=== PATIENT | male | born 1985 | race Caucasian/White ===

== ENCOUNTER 2020-12-19 16:04 | Outpatient (REF) | payer BC, SELFPAY ==
--- NOTE | ~2020-12-19 | XR_ITS ---
EXAMINATION: XR KNEE, RIGHT CLINICAL INFORMATION: Right knee pain COMPARISON: None TECHNIQUE: Four views of the right knee. FINDINGS: Bones and soft tissues are normal. No fracture or joint effusion. Alignment is anatomic. Joint spaces are well maintained. A few small bony density seen in the region of the patella tendon adjacent to the tibial tuberosity without significant overlying soft tissue swelling. XR/XR knee RT 4V IMPRESSION: No significant bony abnormality of the right knee identified. No right knee effusion.
== END 2020-12-19 16:05 | disposition home or self-care (01) ==
LOC: HO.HMGCX 16:04
PROVIDERS: PCP Nurse Practitioner Family; Visit Provider Hospitalist
DX: M25.561 Pain in right knee (principal)
CPT/HCPCS: 73564

== ENCOUNTER 2022-03-10 06:01 | Outpatient (REF) | payer BC, SELFPAY ==
[2022-03-10 11:06] LABS: MANUAL DIFF FLAG NO
[2022-03-10 11:15] LABS: Appearance Urine Cloudy; Color Urine Yellow; Glucose Urine UA Negative (Negative); Leukocyte Esterase Urine Negative (Negative); Nitrite Urine Negative (Negative); Specific Gravity - Urine 1.025 (1.005-1.025); Urine Blood Negative (Negative); Urine Ketones Negative (Negative); Urine Protein Negative (Neg-Trace)
[2022-03-10 11:37] LABS: Basophils Percent Auto 0.6 % (0-2); Eosinophils Absolute Auto 0.2 X10*3/uL (0.0-0.4); Eosinophils Percent Auto 2.8 % (0-4); Hematocrit 45.5 % (42.0-52.0); Imm Gran Abs Auto 0.01 X10*3/uL (0.00-0.03); Imm Gran Pct Auto 0.2 % (0.0-0.4); Lymphocytes Absolute Auto 2.4 X10*3/uL (1.2-4.9); Lymphocytes Percent Auto 37.6 % (20-40); Mean Corpuscular Hemoglobin 28.4 pg (27.0-33.0); Mean Platelet Volume 10.2 fL (9.4-12.4); Monocytes Absolute Auto 0.6 X10*3/uL (0.1-1.2); Monocytes Percent Auto 9.6 % (2-11); Neutrophils Absolute Auto 3.2 x10*3/uL (2.0-8.3); Neutrophils Percent Auto 49.2 % (45-73); Platelet Count 188 X10*3/uL (160-400); Red Blood Count 5.29 X10*6/uL (4.60-5.80); Red Cell Distribution Width 12.5 % (11.0-16.0); White Blood Count 6.4 X10*3/uL (4.8-10.8)
[2022-03-10 11:57] LABS: Alanine Aminotransferase 49 U/L (0-40); Albumin Level 4.3 g/dL (3.5-5.0); Alkaline Phosphatase 60 U/L (39-117); Anion Gap 14 (12-20); Aspartate Amino Transferase 27 U/L (5-37); Bilirubin Total 0.6 mg/dL (0.0-1.0); Blood Urea Nitrogen 18 mg/dL (9-16); Calcium 9.1 mg/dL (8.4-10.2); Carbon Dioxide 24 mmol/L (22-29); Chloride 105 mmol/L (96-108); Cholesterol 200 mg/dL; Estimated Glomerular Filt Rate > 60; Glucose Fasting 87 mg/dL (60-99); HDL Cholesterol 33 mg/dL; LDL Cholesterol Calculated 139 mg/dl; Potassium 4.2 mmol/L (3.3-5.1); Sodium 139 mmol/L (135-145); Triglycerides 141 mg/dL
[2022-03-10 12:01] LABS: TSH reflex Free T4 2.74 uIU/mL (0.32-4.0)
[2022-03-14 15:56] LABS: Testosterone, Total 363 ng/dL (250-1100)
== END 2022-03-10 06:02 | disposition home or self-care (01) ==
LOC: HO.HMGCLDS 06:01
PROVIDERS: PCP Nurse Practitioner Family; Visit Provider Nurse Practitioner Family
DX: Z00.00 Encounter for general adult medical examination without abnormal findings (principal); N52.9 Male erectile dysfunction, unspecified
CPT/HCPCS: 36415; 80053; 80061; 81003; 84402; 84403; 84443; 85025

== ENCOUNTER 2024-11-30 13:36 | Outpatient (AMB) | payer BC, SELFPAY ==
--- NOTE | 2024-11-30 13:40 | MHC.PC.OV ---
Vital Signs 11/30/24 13:41 Height 6 ft 1 in Weight 251 lb BMI 33.1 BP 130/90 H Position Sitting Pulse 86 Pulse Source Pulse Oximeter Pulse Oximetry (%) 95 Oxygen Delivery Method Room Air Intake Visit Reasons: discharge/concussion Apprentice Architect Required: No Accompanied by: Self / Same As Patient Allergies No Known Allergies Allergy (Verified 11/30/24 13:42) Medication List - Last Reconciled 11/30/24 by María Daniel PA-C No Known Home Meds Tobacco use date assessed: 11/30/24 Dental Screening Dental Screen Date: 11/30/24 Did you have a dental visit in the last 12 months?: Yes Did you have a dental problem in the last 6 months where you did not have access to dental care?: No Was dental information given to patient?: Patient has dentist HPI TCM TCM Information Date of Discharge 11/17/24 HPI Comments History of Present Illness Details Patient is a 39-year-old male with no significant past medical history here for a emergency room follow-up from an emergency room visit on November 17 at [facility]. Patient was brought by EMS to the [facility] Emergency Department as a category 2 trauma status post falling off of a horse. After he fell off the horse he was found unresponsive by a bystander and was thought to have had agonal respirations. When EMS arrived he was alert and oriented complaining of neck pain, dizziness and blurry vision. He was collared by EMS. EMS staff reports that he was forgetful and route but he remembered the horse bucking and falling to the ground. Upon arrival to the emergency department, primary survey was done and he was found to have a GCS of 15 his vital signs were stable, his physical exam was relatively unremarkable. He had the following workup; his labs were found to be normal, he had a CTA of the head, neck, chest abdomen and pelvis, a chest x-ray all of which were negative for any acute issues. He remained clinically stable while in the emergency department was answering questions appropriately although he did continue to repeat questions every few minutes. The trauma doctors and emergency department staff felt he was appropriate to be discharged home if he had family that could observe him, which he said he did so he was discharged later on the 17 of November. He was discharged with a diagnosis of a concussion due to the headache and memory issues he was having. He was told to take Tylenol for pain and have an adult observe him for the next few days. 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 He was also told to not work until cleared by his PCP or the concussion clinic and was told to follow up with the Trauma Clinic for a concussion appointment. Since being discharged he denies any vomiting, loss of consciousness, on usual sleepiness, weakness, decreased ability to walk or move any part of his body. He went back to work on 11/27/24, he says busy days make him head feel overwhelmed , today has been good and not as overwhelming as it has not been as stressful of a day. He is still having some having some word finding difficulties, headaches, he states his neck hurts a little still but overall, improving each week. He has some nausea without vomiting, some dizziness with change of position. Has been taking Tylneol but states it doesn't work as well. He has not been resting his brain specifically. He has an appointment at the trauma clinic on 12/08 for a concussion follow up. [facility] Social History Housing: House Patient Tobacco Use Status: Current everyday Tobacco user Tobacco use type: Smokeless Tobacco e-Cigarette/Vaping Use: Never Used Second Hand Smoke Exposure: No service: No Current occupational status: employed Current occupation: [employer] Current occupational exposures/hazards: Yes Cognitive needs: No Hearing needs: No Vision needs: No Questionnaire PHQ-9 Over the last 2 weeks, how often have you been bothered by any of the following problems? 1. Little interest or pleasure in doing things: not at all 2. Feeling down, depressed, or hopeless: not at all 3. Trouble falling or staying asleep, or sleeping too much: not at all 4. Feeling tired or having little energy: not at all 5. Poor appetite or overeating: not at all 6. Feeling bad about yourself - or that you are a failure or have let yourself or your family down: not at all 7. Trouble concentrating on things, such as reading the newspaper or watching television: not at all 8. Moving or speaking so slowly that other people could have noticed. Or the opposite - being so fidgety or restless that you have been moving around a lot more than usual: not at all 9. Thoughts that you would be better off or of hurting yourself in some way: not at all Total score: 0 Depression Screening Interpretation: Negative Depression Screening Done: Yes 70655 - PHQ-9 Billing: Yes Source: Developed by Drs. Vic Puente, Breana Rendon, Zander Harris and colleagues, with an educational mariam from [employer] Thrive Questionnaire Date Thrive assessed: 11/30/24 I am a: Patient What is your living situation today?: I have a steady place to live Within the past 12 months, did the food you bought not last and you didn't have the money to get more?: Never true Within the past 12 months, did you worry whether your food would run out before you got money to buy more?: Never true Do you have trouble paying for medicines?: Yes Do you have trouble getting transportation to medical appointments?: No Do you have trouble paying your heating and electricity bill?: No Do you have trouble taking care of your child, family member or friend?: No Do you have trouble with day-to-day activities such as bathing, preparing meals, shopping, managing finances, etc.?: No Are you currently unemployed and looking for a job?: No Are you interested in more education?: No Please select the resources that you would like help with: None Currently or been in a relationship where the following occur: No concerns reported THRIVE Score: 0 AUDIT C Alcohol Use Questionnaire (AUDIT-C) 1. How often do you have a drink containing alcohol?: Never 3. How often do you have six or more drinks on one occasion?: Never Total Score: 0 Score Reviewed/Action Taken: No LUANNE-7 AMB Questionnaire LUANNE-7 Date LUANNE - 7 assessed: 11/30/24 Feeling nervous, anxious, or on edge: 0 = Not at all Not being able to stop or control worryin = Not at all Worrying too much about different things: 0 = Not at all Trouble relaxin = Not at all Being so restless that it is hard to sit still: 0 = Not at all Becoming easily annoyed or irritable: 0 = Not at all Feeling afraid as if something awful might happen: 0 = Not at all Total LUANNE-7 score (0-4 normal; 5-9 mild; 10-14 moderate; 15-21 severe): 0 Source: Developed by Drs. Vic Puente, Breana Rendon, Zander Harris and colleagues, with an educational mariam from [employer] LUANNE-7 Assessment Billing LUANNE-7 Assessment Tool: LUANNE-7 Assessment 14048 Review of Systems Const All systems reviewed & are unremarkable except as noted in HPI and below Physical exam (Primary Care) Vital Signs: Last Vital Signs Pulse 86 11/30/24 13:41 BP 130/90 H 11/30/24 13:41 Pulse Ox 95 11/30/24 13:41 Oxygen Delivery Method Room Air 11/30/24 13:41 BMI result Body Mass Index 33.1 Tobacco/Smoking Status: Tobacco use Status Tobacco use date assessed 11/30/24 11/30/24 13:45 Patient Tobacco Use Status Current everyday Tobacco 11/30/24 13:45 Tobacco use type Smokeless Tobacco 11/30/24 13:45 e-Cigarette/Vaping Use Never Used 11/30/24 13:45 PHQ-9: PHQ-9 Score PHQ-9: Total score 0 11/30/24 14:09 Depression Screening Interpretation: Negative Thrive Assessment: Date of Thrive Assessment Date Thrive assessed 11/30/24 11/30/24 13:45 Currently or been in a relationship where the following occur: No concerns reported Const General: cooperative, healthy appearing, comfortable, no acute distress and well developed Orientation/consciousness: patient oriented x3 Limitations: no limitations HENMT Head: Yes normal to inspection Ears: hearing grossly normal bilaterally General nose exam: Normal external nose present Face and sinus: Yes normal facial exam Eyes General: appearance normal, both eyes and all related structures Neck Neck: Yes normal visual inspection and Yes full ROM Resp Effort & Inspection: normal respiratory effort and able to speak in complete sentences Skin General skin exam: no rashes or lesions noted Neuro General: patient oriented x3 Extrem General: Yes normal to inspection Coding Level of Care Code Est Pt Level 4 (57276) Diagnoses Hospital discharge follow-up Z09 Concussion with loss of consciousness of 30 minutes or less, initial encounter S06.0X1A Encounter type: initial encounter Loss of consciousness presence/duration: with LOC of 30 min or less Additional Codes LUANNE-7 Assessment Billing - LUANNE-7 Assessment Tool: LUANNE-7 Assessment 27471 ([id number]) PHQ-9 - 75369 - PHQ-9 Billing: Yes ([id number]) Assessment & Plan Assessment & Plan (1) Hospital discharge follow-up: Code(s): Z09 - Encounter for follow-up examination after completed treatment for conditions other than malignant neoplasm Category: Medical Plan: As patient is still symptomatic, I did recommend he stay out of work to allow his brain to heal so I wrote him a note to excuse him until he is cleared by the Concussion Clinic to return to work. He will be dropping off [facility] paperwork for me to fill out. We also had a long discussion about brain rest and allowing his brain to heal. Reduced stimulation with no music, no screen time, in the dark as much as he possibly can we will help him recover from his concussion faster. Encouraged him to go to the concussion appointment on December 08 at the trauma clinic. (2) Concussion: Code(s): S06.0XAA - Concussion with loss of consciousness status unknown, initial encounter Category: Medical Qualifiers: Encounter type: initial encounter Loss of consciousness presence/duration: with LOC of 30 min or less Qualified Code(s): S06.0X1A - Concussion with loss of consciousness of 30 minutes or less, initial encounter Plan: as above
[2024-11-30 13:41] VITALS: BP 130/90; PULSE 86; O2SAT 95; BMI 33.1
--- OUTSIDE RECORDS SUMMARY | 2024-11-30 14:14 | XMS_ITS | Continuity of Care Document ---
Author Organization [facility] Address [address] [place] [address] Care Team Providers Care Highballer Name Role Phone Cameron Warner NP Primary Care Provider Encounters Date Type Department Care Team Description 09/16/2020 3:30 PM EDT Office Visit [address] [phone] Lisandro Cartagena PA Screen for STD (sexually transmitted disease) (Primary Dx); Difficult or painful urination 09/16/2020 Travel 07/21/2019 Office Visit [facility] [address] [place] [phone] Landen Aguirre PA 07/21/2019 2:15 PM EST Office Visit [facility] [address] [place] [phone] Landen Aguirre PA Pre-employment health screening examination (Primary Dx) Allergies No known active allergies Medications No known medications Immunizations Immunization Administration Dates Next Due Influenza,injectable,quad,Prsrv Fr 03/29/2018 Social History Smoking Status as of 11/30/2024 Tobacco Use Types Packs/Day Years Used Date Smoking Tobacco: Never Assessed Sex and Gender Information Value Date Recorded Sex Assigned at Not on file Legal Sex Male 1:14 PM EST Gender Identity Not on file Sexual Orientation Not on file Last Filed Vital Signs Vital Sign Reading Time Taken Comments Blood Pressure 118/77 09/16/2020 3:26 PM EDT Pulse 98 09/16/2020 3:26 PM EDT Temperature 36 C (96.8 F) 09/16/2020 3:26 PM EDT Respiratory Rate - - Oxygen Saturation 97% 09/16/2020 3:26 PM EDT Inhaled Oxygen Concentration - - Weight - - Height - - Body Mass Index - - Plan of Treatment Not on file Procedures * Due to [place] Visual [employer] law, this organization might not be sharing negative HIV tests. Procedure Name Priority Date/Time Associated Diagnosis Comments CHLAMYDIA TRACHOMATIS/N. GONORRHOEAE (GC) RNA, TMA (URINE) Routine 09/16/2020 3:45 PM EDT Screen for STD (sexually transmitted disease) SYPHILIS (FTA) ANTIBODY CASCADING REFLEX TO RPR/TITER (*PREFERRED SCREEN*) Routine 09/16/2020 3:45 PM EDT Screen for STD (sexually transmitted disease) URINE DIPSTICK - STATION Routine 09/16/2020 3:36 PM EDT Difficult or painful urination Results * Due to [place] Visual [employer] law, this organization might not be sharing negative HIV tests. * SYPHILIS (FTA) ANTIBODY CASCADING REFLEX TO RPR/TITER (*PREFERRED SCREEN*) (09/16/2020 3:45 PM EDT) Treponema pallidum Ab NEGATIVE NEGATIVE [facility] Comment: No antibodies to T. pallidum (the agent causing syphilis) were detected in the specimen. This result, however, does not exclude very recent T. pallidum infection; testing of a second specimen, collected 2-4 weeks after this specimen, is recommended if the index of suspicion for recent infection is high. 09/16/2020 3:45 PM EDT 09/17/2020 1:49 AM EDT Narrative Resulting Agency Comment [id number] [facility] Final Result [facility] [address] [place] [address] * CHLAMYDIA TRACHOMATIS/N. GONORRHOEAE (GC) RNA, TMA (URINE) (09/16/2020 3:45 PM EDT) Chlamydia trachomatis rRNA NOT DETECTED NOT DETECTED [facility] Neisseria Gonorrhoeae rRNA NOT DETECTED NOT DETECTED [facility] COMMENT SEE NOTE [facility] Comment: The analytical performance characteristics of this assay, when used to test SurePath(TM) specimens have been determined by [employer]. The modifications have not been cleared or approved by the FDA. This assay has been validated pursuant to the CLIA regulations and is used for clinical purposes. For additional information, please refer to https://education.InStaff/faq/RWY348 (This link is being provided for information/ educational purposes only.) 09/16/2020 3:45 PM EDT 09/17/2020 1:49 AM EDT Narrative Resulting Agency Comment [id number] Lis[facility] Final Result [facility] [address] [place] [address] * (ABNORMAL) URINE DIPSTICK - STATION (09/16/2020 3:36 PM EDT) COLOR (URINE) yellow APPEARANCE (URINE) clear Clear Leukocyte esterase (Urine) neg Neg NITRITE (URINE) neg Neg UROBILINOGEN, URINE 0.2 Neg PROTEIN (URINE) trace Neg PH (URINE) 5.0 5.0 - 8.0 BLOOD (URINE) neg Neg SPECIFIC GRAVITY 1.025 1.001 - 1.035 UR KETONES 5 trace Neg BILIRUBIN (URINE) small Neg GLUCOSE (URINE) neg Neg Urine clean catch 09/16/2020 3:36 PM EDT [facility] Final Result Visit Diagnoses Diagnosis Start Date Pre-employment health screening examination Health examination of defined subpopulation 07/21/2019 Screen for STD (sexually transmitted disease) Screening examination for venereal disease 09/16/2020 Difficult or painful urination Dysuria 09/16/2020 Care Teams Highballer Relationship Specialty Start Date End Date Cameron Warner NP [address] [id number] PCP - General Nurse Practitioner 09/16/20
--- OUTSIDE RECORDS SUMMARY | 2024-11-30 14:14 | XMS_ITS | Referral Summary ---
Author Organization [facility] Address [address] [place] [address] Care Team Providers Care Automotive Heavy Mechanic Name Role Phone Cameron Warner Primary Care Provider [phone] Allergies No known active allergies Medications cyclobenzaprine (FLEXERIL) 10 mg tablet Take 1 tablet (10 mg total) by mouth 2 times a day as needed for muscle spasms. 20 tablet 12/13/2021 Active Social History Tobacco Use Types Packs/Day Years Used Date Smoking Tobacco: Never Assessed Sex and Gender Information Value Date Recorded Sex Assigned at Male 06/07/2022 10:18 AM EST Legal Sex Male 3:02 PM EDT Gender Identity Male 06/07/2022 10:18 AM EST Sexual Orientation Straight 06/07/2022 10 :18 AM EST Last Filed Vital Signs Vital Sign Reading Time Taken Comments Blood Pressure 129/102 06/03/2022 10:24 AM EST Pulse 104 06/03/2022 10:24 AM EST Temperature 36.4 C (97.5 F) 06/03/2022 10:24 AM EST Respiratory Rate 18 06/03/2022 10:24 AM EST Oxygen Saturation 98% 06/03/2022 10:24 AM EST Inhaled Oxygen Concentration - - Weight 106.6 kg (235 lb) 12/13/2021 3:10 PM EDT Height - - Body Mass Index - - Plan of Treatment Not on file Insurance BCBS OUT OF STATE PPO WORKERS COMPENSATION [facility] Care Teams Automotive Heavy Mechanic Relationship Specialty Start Date End Date Cameron Warner [address] [place] [address] PCP - General 12/13/21
--- OUTSIDE RECORDS SUMMARY | 2024-11-30 14:14 | XMS_ITS | Clinical Summary ---
Author Organization [facility] Address [address] [place] [address] Care Team Providers Care Parcel Carrier Name Role Phone Pcp, No Primary Care Provider Unavailabl e Social History Tobacco Use Types Packs/Day Years Used Date Smoking Tobacco: Never Assessed Sex and Gender Information Value Date Recorded Sex Assigned at Not on file Legal Sex Male 11:12 AM EST Gender Identity Not on file Sexual Orientation Not on file Plan of Treatment Health Maintenance Due Date Last Done Comments Hepatitis C Virus Screening 1984 HIV Screening 1997 DTaP/Tdap/Td Vaccines (1 - Tdap) 2003 Hepatitis B Vaccines (1 of 3 - 19+ 3-dose series) 2003 COVID-19 Vaccine (2023-2 5 season) 2024 Influenza Vaccine 12/15/2024 03/29/2018 HPV Vaccines Aged Out No longer eligi ble based on patient's age to complete this topic Pneumococcal Vaccine: Pediat gaurav (0-5 Years) and At-Risk Patients (6 to 49 Years) Aged Out No longer eligible b ased on patient's age to complete this topic Insurance [employer] OUT OF STATE - PPO Care Teams Parcel Carrier Relationship Specialty Start Date End Date Pcp, No PCP - General General Medicine 04/12/21
== END 2024-11-30 14:36 | disposition home or self-care (01) ==
PROVIDERS: PCP Nurse Practitioner Family; Visit Provider Physician Assistant
DX: Z09 Encounter for follow-up examination after completed treatment for conditions other than malignant neoplasm (principal); S06.0X1A Concussion with loss of consciousness of 30 minutes or less, initial encounter

== ENCOUNTER → 2024-11-30 13:36 | Outpatient (BNVA) | payer OTHER, BC, SELFPAY | PROVIDERS: PCP Nurse Practitioner Family; Visit Provider Physician Assistant | DX: S06.0X1D Concussion with loss of consciousness of 30 minutes or less, subsequent encounter (principal); V80.010D Animal-rider injured by fall from or being thrown from horse in noncollision accident, subsequent encounter; Z09 Encounter for follow-up examination after completed treatment for conditions other than malignant neoplasm | CPT/HCPCS: 96127 ==

== ENCOUNTER 2025-03-19 09:01 | Outpatient (AMB) | payer BC, SELFPAY ==
[2025-03-19 09:11] VITALS: BP 126/76; PULSE 73; RESP 16; TEMP 37.1; O2SAT 96; BMI 31.9
--- NOTE | 2025-03-19 09:11 | MHC.PC.OV ---
Vital Signs 03/19/25 09:11 Height 6 ft 1 in Weight 242 lb BMI 31.9 BP 126/76 Blood Pressure Location Lt brachial Position Sitting Respiration 16 Pulse 73 Pulse Source Pulse Oximeter Temp 98.8 F Temp Source Oral Pulse Oximetry (%) 96 Oxygen Delivery Method Room Air Intake Visit Reasons: PE Printer Assistant Required: No Accompanied by: Self / Same As Patient Allergies No Known Allergies Allergy (Verified 03/19/25 10:06) Medication List - Last Reconciled 03/19/25 by DONNA Emerson No Known Home Meds Tobacco use date assessed: 03/19/25 Dental Screening Dental Screen Date: 03/19/25 Did you have a dental visit in the last 12 months?: Yes Did you have a dental problem in the last 6 months where you did not have access to dental care?: No Was dental information given to patient?: Patient has [facility] Social History Housing: House Patient Tobacco Use Status: Former Tobacco user Tobacco use type: Smokeless Tobacco e-Cigarette/Vaping Use: Never Used Second Hand Smoke Exposure: No service: No Current occupational status: employed Current occupation: [place] Current occupational exposures/hazards: Yes Cognitive needs: No Hearing needs: No Vision needs: No Questionnaire PHQ-9 Over the last 2 weeks, how often have you been bothered by any of the following problems? 1. Little interest or pleasure in doing things: not at all 2. Feeling down, depressed, or hopeless: not at all 3. Trouble falling or staying asleep, or sleeping too much: not at all 4. Feeling tired or having little energy: not at all 5. Poor appetite or overeating: not at all 6. Feeling bad about yourself - or that you are a failure or have let yourself or your family down: not at all 7. Trouble concentrating on things, such as reading the newspaper or watching television: not at all 8. Moving or speaking so slowly that other people could have noticed. Or the opposite - being so fidgety or restless that you have been moving around a lot more than usual: not at all 9. Thoughts that you would be better off or of hurting yourself in some way: not at all Total score: 0 Depression Screening Interpretation: Negative Depression Screening Done: Yes 01446 - PHQ-9 Billing: Yes Source: Developed by Drs. Vic Puente, Breana Rendon, Zander Harris and colleagues, with an educational mariam from [employer]. Thrive Questionnaire Date Thrive assessed: 11/30/24 I am a: Patient What is your living situation today?: I have a steady place to live Within the past 12 months, did the food you bought not last and you didn't have the money to get more?: Never true Within the past 12 months, did you worry whether your food would run out before you got money to buy more?: Never true Do you have trouble paying for medicines?: Yes Do you have trouble getting transportation to medical appointments?: No Do you have trouble paying your heating and electricity bill?: No Do you have trouble taking care of your child, family member or friend?: No Do you have trouble with day-to-day activities such as bathing, preparing meals, shopping, managing finances, etc.?: No Are you currently unemployed and looking for a job?: No Are you interested in more education?: No Please select the resources that you would like help with: None Currently or been in a relationship where the following occur: No concerns reported THRIVE Score: 0 AUDIT C Alcohol Use Questionnaire (AUDIT-C) 2. How many drinks containing alcohol do you have on a typical day when you are drinking?: 1 or 2 3. How often do you have six or more drinks on one occasion?: Never Total Score: 0 LUANNE-7 AMB Questionnaire LUANNE-7 Date LUANNE - 7 assessed: 03/19/25 Feeling nervous, anxious, or on edge: 0 = Not at all Not being able to stop or control worryin = Not at all Worrying too much about different things: 0 = Not at all Trouble relaxin = Not at all Being so restless that it is hard to sit still: 0 = Not at all Becoming easily annoyed or irritable: 0 = Not at all Feeling afraid as if something awful might happen: 0 = Not at all Total LUANNE-7 score (0-4 normal; 5-9 mild; 10-14 moderate; 15-21 severe): 0 Source: Developed by Breana Mccord B.W. Justice, Zander Harris and colleagues, with an educational mariam from [employer]. LUANNE-7 Assessment Billing LUANNE-7 Assessment Tool: LUANNE-7 Assessment 52532 Physical exam (Primary Care) Vital Signs: Last Vital Signs Temp 98.8 F 03/19/25 09:11 Pulse 73 03/19/25 09:11 Resp 16 03/19/25 09:11 BP 126/76 03/19/25 09:11 Pulse Ox 96 03/19/25 09:11 Oxygen Delivery Method Room Air 03/19/25 09:11 BMI result Body Mass Index 31.9 Tobacco/Smoking Status: Tobacco use Status Tobacco use date assessed 03/19/25 03/19/25 09:16 Patient Tobacco Use Status Former Tobacco user 03/19/25 09:16 Tobacco use type Smokeless Tobacco 03/19/25 09:16 e-Cigarette/Vaping Use Never Used 03/19/25 09:16 PHQ-9: PHQ-9 Score PHQ-9: Total score 0 03/19/25 09:16 Depression Screening Interpretation: Negative Thrive Assessment: Date of Thrive Assessment Date Thrive assessed 11/30/24 03/19/25 09:16 Currently or been in a relationship where the following occur: No concerns reported Coding Level of Care Code Est Pt Prev Care 40-64y(88039) Diagnoses Physical exam Z00.00 Skin lesions L98.9 Left testicular pain N50.812 Screening for prostate cancer Z12.5 Additional Codes LUANNE-7 Assessment Billing - LUANNE-7 Assessment Tool: LUANNE-7 Assessment 28646 ([id number]) PHQ-9 - 57323 - PHQ-9 Billing: Yes ([id number]) Assessment & Plan Assessment & Plan (1) Physical exam: Code(s): Z00.00 - Encounter for general adult medical examination without abnormal findings Category: Medical (2) Skin lesions: Code(s): L98.9 - Disorder of the skin and subcutaneous tissue, unspecified Category: Medical (3) Left testicular pain: Code(s): N50.812 - Left testicular pain Category: Medical (4) Screening for prostate cancer: Code(s): Z12.5 - Encounter for screening for malignant neoplasm of prostate Category: Medical Plan . Orders: Orders Comprehensive [place]. Panel Fast Today Z00.00 - Encounter for general adult medical examination without abnormal findings TSH reflex Free T4 Today Z00.00 - Encounter for general adult medical examination without abnormal findings US scrotum Today N50.812 - Left testicular pain Complete Blood Count Auto Diff Today Z00.00 - Encounter for general adult medical examination without abnormal findings UA CC w/rflx Micro + Cult Today Z00.00 - Encounter for general adult medical examination without abnormal findings Lipid Panel Today Z00.00 - Encounter for general adult medical examination without abnormal findings Prostate Specific Antigen Scr Today Z12.5 - Encounter for screening for malignant neoplasm of prostate Referrals Dermatology Referral L98.9 - Disorder of the skin and subcutaneous tissue, unspecified
--- OUTSIDE RECORDS SUMMARY | 2025-03-19 09:51 | XMS_ITS | Continuity of Care Document ---
Author Organization [facility] Address [address] [place] [address] Care Team Providers Care Metalworker Name Role Phone Cameron Warner NP Primary Care Provider Encounters Date Type Department Care Team Description 09/16/2020 3:30 PM EDT Office Visit [address] [phone] Lisandro Cartagena PA Screen for STD (sexually transmitted disease) (Primary Dx); Difficult or painful urination 09/16/2020 Travel 07/21/2019 Office Visit [facility] [address] [place] [phone] Landen Aguirre PA 07/21/2019 2:15 PM EST Office Visit [facility] [address] [place] [phone] Landen Aguirre PA Pre-employment health screening examination (Primary Dx) Allergies No known active allergies Medications No known medications Immunizations Immunization Administration Dates Next Due Influenza,injectable,quad,Prsrv Fr 03/29/2018 Social History Smoking Status as of 03/19/2025 Tobacco Use Types Packs/Day Years Used Date [...] Not on file Procedures * Due to [place] SocialMedia[employer] law, this organization might not be sharing [...] or painful urination Results * Due to [place] SocialMedia[place] law, this organization might not be sharing [...] 1:49 AM EDT Narrative Resulting Agency Comment [id number] [facility] Final Result [facility] [address] [place] [address] * CHLAMYDIA TRACHOMATIS/N. GONORRHOEAE (GC) RNA, TMA (URINE) (09/16/2020 3:45 PM EDT) Chlamydia trachomatis rRNA NOT DETECTED NOT DETECTED [facility] Neisseria Gonorrhoeae rRNA NOT DETECTED NOT DETECTED [facility] COMMENT SEE NOTE [facility] Comment: The analytical performance characteristics of this assay, when used to test SurePath(TM) specimens have been determined by [facility]. The modifications have not been cleared or approved by the FDA. This assay has been validated pursuant to the CLIA regulations and is used for clinical purposes. For additional information, please refer to https://education.[employer]/faq/NHB486 (This link is being provided for information/ educational purposes only.) 09/16/2020 3:45 PM EDT 09/17/2020 1:49 AM EDT Narrative Resulting Agency Comment [id number] [facility] Final Result [facility] [address] [place] [address] * (ABNORMAL) URINE DIPSTICK - STATION (09/16/2020 [...] or painful urination Dysuria 09/16/2020 Care Teams Metalworker Relationship Specialty Start Date End Date Cameron Warner NP [address] [address] PCP - General Nurse Practitioner 09/16/20
--- OUTSIDE RECORDS SUMMARY | 2025-03-19 09:51 | XMS_ITS | Clinical Summary ---
Author Organization [facility] Address [address] [place] [address] Care Team Providers Care Sludge Filtration Attendant Name Role Phone Cameron Warner Primary Care Provider Allergies No known active allergies Medications cyclobenzaprine [...] Mass Index - - Plan of Treatment Health Maintenance Due Date Last Done Comments HIV Screening 1984 Varicella Vaccines (1 of 2 - 13+ 2-dose series) 1997 Hepatitis B Vaccines (1 of 3 - 19+ 3-dose series) 2003 DTaP,Tdap,and Td Vaccines (2 - Td or Tdap) 11/18/2021 11/19/2011 Alcohol/Substance Use Screening 05/17/2024 COVID-19 Vaccine (1 - 2024-2 6 season) 2025 Influenza Vaccine (#1) 2025 03/29/2018 RSV Vaccine (60+ years old a nd patients) (1 - 1-dose 75+ series) 2059 Pneumococcal Vaccine: Pediat gaurav (0-5 Years) and At-Risk Patients (6-50 Years) Aged Out No longer eligible b ased on patient's age to complete this topic Insurance BCBS OUT OF STATE PPO WORKERS COMPENSATION ESTELA DOCKERY Care Teams Sludge Filtration Attendant Relationship Specialty Start Date End Date Cameron Warner [address] [place] [address] PCP - General 12/13/21
--- OUTSIDE RECORDS SUMMARY | 2025-03-19 09:51 | XMS_ITS ---
Author Name [facility] Organization Unknown Encounters Encounter Type Encounter Reason Primary Diagnosis Location Date Ambulatory Contact with and (suspected) exposure to covid-19 [facility] 04/12/2021 Care Team Organization Name Specialty Phone Email Start Date End Da te [facility] PCP,No Primary Care 04/12/2021 01/03/2024 [facility] NO PCP Primary Care 04/12/2021 04/12/2021
--- OUTSIDE RECORDS SUMMARY | 2025-03-19 09:51 | XMS_ITS | Encounter Summary ---
Author Organization [facility] Address [address] [place] [phone] Phone Care Team Providers Care C++ Professor Name Role Phone Baljeet Solares DO Primary Care Provider [phone] Pcp, Unknown Primary Care Provider Cameron Hernandez NP Primary Care Provider + Encounter Details Date Type Department Care Team (Late st Contact Info) Description 07/30/2017 Ancillary Orders [facility] [address] [place] [address] [phone] Lisa Gill PA-C [address] [place] [address] [facility] 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 Not on file Not o n file documented as of this encounter Plan of Treatment Not on file documented as of this encounter Visit Diagnoses Not on filedocumented in this encounter Care Teams C++ Professor Relationship Specialty Start Date End Date Baljeet Solares DO [address] [facility] [place] [address] [email or web address] PCP - General Family Medicine 04/01/17 11/02/21 Pcp, Unknown PCP - General 11/03/21 10/03/23 Cameron Warner NP [facility] [place] [address] PCP - General Nurse Practitioner 10/04/23 documented as of this encounter Additional Source Comments The information contained in this document represents components of the legal health record. It is not the complete legal health record.[facility]
--- OUTSIDE RECORDS SUMMARY | 2025-03-19 09:51 | XMS_ITS | Clinical Summary ---
Author Organization [facility] Address [address] [place] [address] Care Team Providers Care Rail Car Repair Carman Name Role Phone Pcp, No Primary Care [...] of 3 - 19+ 3-dose series) 2003 Influenza Vaccine 12/15/2024 03/29/2018 COVID-19 Vaccine ( - 2023-2 5 season) 2025 HPV Vaccines (No Doses Required) Completed Pneumococcal Vaccine: Pediat gaurav (0-5 Years) and At-Risk Patients (6 to 49 Years) Aged Out No longer eligible b ased on patient's age to complete this topic Insurance [facility] [employer] - PPO Care Teams Rail Car Repair Carman Relationship Specialty Start Date End Date Pcp, Sheba PCP - General General Medicine 04/12/21
--- OUTSIDE RECORDS SUMMARY | 2025-03-19 09:51 | XMS_ITS | Encounter Summary ---
Author Organization [facility] Address [address] [place] [phone] Phone Care Team Providers Care Diamond Cutter Name Role Phone Baljeet Solares DO Primary Care Provider [phone] Pcp, Unknown Primary Care Provider Cameron Hernandez NP Primary Care Provider + Encounter Details Date Type Department Care Team (Late st Contact Info) Description 07/30/2017 Ancillary Orders [address] [phone] Lisa Gill PA-C [address] [place] [address] [facility] 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 Interpretation has been included in the provider encounter note for this date of service. Lisa Gill PA-C IMG XR UPPER EXTREMI TY Final Result documented in this encounter Visit Diagnoses Diagnosis Left elbow pain Pain in joint, upper arm Left elbow pain Pain in joint, upper arm documented in this encounter Care Teams Diamond Cutter Relationship Specialty Start Date End Date Baljeet Solares DO [address] [facility] [place] [address] PCP - General Family Medicine 04/01/17 11/02/21 Pcp, Unknown PCP - General 11/03/21 10/03/23 Cameron Warner NP [address] [place] [address] [place] [address] PCP - General Nurse Practitioner 10/04/23 documented as of this encounter Additional Source Comments The information contained in this document represents components of the legal health record. It is not the complete legal health record.[facility]
--- OUTSIDE RECORDS SUMMARY | 2025-03-19 09:51 | XMS_ITS | Clinical Summary ---
Author Organization [facility] Address [address] [place] [phone] Phone Care Team Providers Care Garage Door Opener Installer Name Role Phone Cameron Warner DIRECTOR OF RECRUITMENT AND ADMISSIONS Primary Care Provider + Allergies No known active allergies Medications ibuprofen (ADVIL,MOTRIN) 200 MG tablet Take 200 mg by mouth every 6 (six) hours as needed for pain (specific location in comments). Active dextromethorpha n HBr (VICKS DAYQUIL COUGH ORAL) Take by mouth. Active Active Problems Problem Noted Date Diagnosed Date Closed displaced fracture of head of left radius 07/05/2017 Annual physical exam 06/07/2017 Assessment & Plan (06/07/2017 3:11 PM EST): Pt UTD with tdap, declines flu shot. Counseled on diet and exercise regimen. Advised to focus on weight loss. We'll check fasting labs. Carpal tunnel syndrome of right wrist 06/07/2017 Assessment & Plan (06/07/2017 3:14 PM EST): Pt to use wrist brace at night and make efforts to avoid repetitive tasks with hand. We'll consider P.T. And Ortho eval prn. Dyslipidemia 06/07/2017 Assessment & Plan (06/07/2017 3:15 PM EST): Pt has been managing with lifestyle. We'll check labs and make further recommendations prn. Gastroesophageal reflux disease 04/20/2017 Assessment & Plan (06/07/2017 3:12 PM EST): Pt advised to avoid late night meals, spicy foods, foods high in fat, caffeine, tobacco and alcohol. Pt advised to elevate the head of the bed and reduce weight. Obesity 04/20/2017 Assessment & Plan (06/07/2017 3:12 PM EST): Lifestyle counseling with labs. Tobacco abuse 04/20/2017 Assessment & Plan (06/07/2017 3:13 PM EST): Pt has weaned from cigarettes to chewing tobacco and is trying to quit altogether. Immunizations Immunization Administration Dates Next Due Influenza Quadrivalent Preservative Free IM 03/17 Tdap 02/17/2024,11/19/2011 Social History Tobacco Use Types Packs/Day Years Used Date Smoking Tobacco: Former Cigarettes Q uit: 06/07/2014 Smokeless Tobacco: Current Tobacco Cessation:Ready to Q uit: Not Asked; Counseling Given: Not Answered Alcohol Use Standard Drinks/Week Comments Yes 0 (1 standard drink = 0.6 oz pur e alcohol) occasional social Education Answer Date Recorded Are you interested in more education? Not on rupert e 09/11/2022 Are you concerned about learning? Not on file 09/11/2022 No 09/11/2022 No 09/11/2022 Digital Access Answer Date Recorded No 10/12/2022 No 10/12/2022 Reliable internet access at home? Not on file 10/12/2022 Device with a working camera? 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 on file Not on file Not o n file Last Filed Vital Signs Vital Sign Reading Time Taken Comments Blood Pressure 110/81 02/17/2024 7:15 PM EDT Pulse 91 02/17/2024 7:15 PM EDT Temperature 36.5 C (97.7 F) 02/17/2024 7:15 PM EDT Respiratory Rate 12 02/17/2024 7:15 PM EDT Oxygen Saturation 97% 02/17/2024 7:15 PM EDT Inhaled Oxygen Concentration - - Weight 122.1 kg (269 lb 3.2 oz) 06/22/2018 2:08 PM EST Height 181.6 cm (5' 11.5 ) 06/22/2018 2:08 PM ES T Body Mass Index 37.02 06/22/2018 2:08 PM EST Plan of Treatment Health Maintenance Due Date Last Done Comments DEPRESSION SCREENING 1996 SMOKING Hx and SMOKELESS TOBACCO SCREENING 1997 HEPATITIS C SCREENING 2002 HIV ONE-TIME SCREENING (18-6 5 YEARS) 2002 LIPID PANEL 07/05/2022 07/05/2017 INFLUENZA VACCINE (#1) 2024 03/29/2018 COVID-19 VACCINE (1 - 2024-2 6 season) 2025 Adult Td,Tdap Booster 02/16/2034 02/17/2024 , 11/19/2011 HEPATITIS A VACCINES Aged Out No long er eligible based on patient's age to complete this topic HIB VACCINES Aged Out No longer eligi ble based on patient's age to complete this topic MENINGOCOCCAL VACCINES (ACWY) Aged Out No longer eligible based on patient's age to complete this topic MENINGOCOCCAL VACCINES (B) Aged Out N o longer eligible based on patient's age to complete this topic PNEUMOCOCCAL VACCINES (0-49 years) Aged Out No longer eligible b ased on patient's age to complete this topic Medical Devices Not on file Procedures Procedure Name Priority Date/Time Associated Diagnosis Comments LIPID PANEL Routine 07/05/2017 9:18 AM EST Dyslipidemia from Last 3 Months or Most Recently Relevant to Health Maintenance Results * Lipid panel (07/05/2017 9:18 AM EST) HDL 36 mg/dL [facility] Comment: Interpretation: Risk Level Males Decreased >45 mg/dL Average 40-45 mg/dL Increased <40 mg/dL CHOLESTEROL 162 0 - 240 mg/dL [facility] TRIGLYCERIDES 71 30 - 160 mg/dL [facility] LDL 112 50 - 129 mg/dL [facility] Comment: LDL levels in terms of risk for coronary heart disease: <100 mg/dL: Optimal 100-129 mg/dL: Near or above optimal 130-159 mg/dL: Borderline high 160-189 mg/dL: High >190 mg/dL: Very High CARDIAC RISK RATIO 4.5 3.4 - 5.0 [facility] Blood 07/05/2017 9:18 AM EST 07/05/2017 9:19 AM EST us Baljeet Solares DO LAB BLOOD BKR ORDERABLES Final R esult Performing Organization Address City/State/[place] Co de Phone Number [address] [address] from Last 3 Months or Most Recently Relevant to Health Maintenance Insurance OUT OF [facility] PPO OUT OF [facility] PPO [place]UE [place] OUT OF STATE PPO OUT OF STATE PPO [place] OUT OF STATE PPO [place] OUT OF STATE PPO Care Teams Garage Door Opener Installer Relationship Specialty Start Date End Date Cameron Warner NP [facility] [place] [address] PCP - General Nurse Practitioner 10/04/23 Additional Source Comments The information contained in this document represents components of the legal health record. It is not the complete legal health record.[facility]
== END 2025-03-19 10:14 | disposition home or self-care (01) ==
LOC: HO.HMCC 09:02
PROVIDERS: PCP Nurse Practitioner Family; Visit Provider Nurse Practitioner Family
DX: Z00.00 Encounter for general adult medical examination without abnormal findings (principal); L98.9 Disorder of the skin and subcutaneous tissue, unspecified; N50.812 Left testicular pain; Z12.5 Encounter for screening for malignant neoplasm of prostate

== ENCOUNTER 2025-03-19 09:01 | Outpatient (REF) | payer BC, SELFPAY ==
[2025-03-19 13:07] LABS: MANUAL DIFF FLAG NO
[2025-03-19 13:09] LABS: Hematocrit 47.7 % (42.0-52.0); Hemoglobin 15.6 g/dl (14.0-18.0); Imm Gran Abs Auto 0.02 X10*3/uL (0.00-0.03); Imm Gran Pct Auto 0.3 % (0.0-0.4); Lymphocytes Absolute Auto 1.9 X10*3/uL (1.2-4.9); Mean Corpuscular HGB Conc 32.7 g/dl (31.0-36.0); Mean Corpuscular Hemoglobin 28.2 pg (27.0-33.0); Mean Corpuscular Volume 86.1 fL (80.0-98.0); NRBC Abs Auto 0.000 X10*3/uL (0.0-0.012); NRBC Pct Auto 0.0 /100WBC (0.0-0.2); Platelet Count 198 X10*3/uL (160-400); Red Blood Count 5.54 X10*6/uL (4.60-5.80); White Blood Count 6.0 X10*3/uL (4.8-10.8)
[2025-03-19 13:31] LABS: Alanine Aminotransferase 31 U/L (0-40); Albumin Level 4.7 g/dL (3.5-5.0); Alkaline Phosphatase 66 U/L (39-117); Anion Gap 7 (12-20); Aspartate Amino Transferase 27 U/L (5-37); Blood Urea Nitrogen 15 mg/dL (9-16); Calcium 9.1 mg/dL (8.4-10.2); Carbon Dioxide 30 mmol/L (22-29); Chloride 108 mmol/L (96-108); Cholesterol 194 mg/dL (<200); Estimated Glomerular Filt Rate > 60; HDL Cholesterol 30 mg/dL (>40); Potassium 4.6 mmol/L (3.3-5.1); Sodium 140 mmol/L (135-145); Total Protein 7.4 g/dL (6.5-8.0); Triglycerides 139 mg/dL (<150)
[2025-03-19 13:31] LABS: Appearance Urine Clear; Glucose Urine UA Negative (Negative); PH 5.5 (5.0-9.0); Specific Gravity - Urine 1.020 (1.005-1.025)
== END 2025-03-19 09:02 | disposition home or self-care (01) ==
LOC: HO.HMGCLDS 09:01
PROVIDERS: PCP Nurse Practitioner Family; Visit Provider Nurse Practitioner Family
DX: Z00.00 Encounter for general adult medical examination without abnormal findings (principal); N50.82 Scrotal pain; L98.9 Disorder of the skin and subcutaneous tissue, unspecified; N50.812 Left testicular pain; Z12.5 Encounter for screening for malignant neoplasm of prostate
CPT/HCPCS: 36415; 80053; 80061; 81003; 84153; 84443; 85025; 96127

== ENCOUNTER 2025-04-26 07:18 | Outpatient (AMB) | payer BC, SELFPAY ==
--- OUTSIDE RECORDS SUMMARY | 2025-04-26 07:22 | XMS_ITS | Clinical Summary ---
Author Organization [facility] Address [address] [place] [address] Care Team Providers Care Voucher Examiner Name Role Phone Pcp, No Primary Care [...] Vaccine 12/15/2024 03/29/2018 COVID-19 Vaccine ( - 2024-2 6 season) 2025 HPV Vaccines (No Doses Required) Completed Pneumococcal Vaccine: Pediat gaurav (0-5 Years) and At-Risk Patients (6 to 49 Years) Aged Out No longer eligible b ased on patient's age to complete this topic Insurance [facility] OUT [facility] - PPO Care Teams Voucher Examiner Relationship Specialty Start Date End Date Pcp, Sheba PCP - General General Medicine 04/12/21
--- OUTSIDE RECORDS SUMMARY | 2025-04-26 07:22 | XMS_ITS | Encounter Summary ---
Author Organization [facility] Address [address] [place] [phone] Phone Care Team Providers Care Planisher Name Role Phone Baljeet Solares DO Primary Care Provider [phone] Pcp, Unknown Primary Care Provider Cameron Hernandez NP Primary Care Provider + Encounter Details Date Type Department Care Team (Late st Contact Info) Description 07/30/2017 Ancillary Orders [address] [phone] Lisa Gill PA-C [address] [place] [address] [facility] 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 It is not the complete legal health record.[facility]
--- OUTSIDE RECORDS SUMMARY | 2025-04-26 07:22 | XMS_ITS | Encounter Summary ---
Author Organization [facility] Address [address] [place] [address] Phone Care Team Providers Care Blanket Winder Helper Name Role Phone Baljeet Solares DO Primary Care Provider [phone] Pcp, Unknown Primary Care Provider Cameron Hernandez NP Primary Care Provider + Encounter Details Date Type Department Care Team (Late st Contact Info) Description 07/30/2017 Ancillary Orders [facility] [address] [place] [address] [phone] Lisa Gill PA-C [address] [place] [address] [facility] 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 file Not on file Not o n file documented as of this encounter Plan of Treatment Not on file documented as of this encounter Visit Diagnoses Not on filedocumented in this encounter Care Teams Blanket Winder Helper Relationship Specialty Start Date End Date Baljeet Solares DO [address] [facility] [place] [address] [email or web address] PCP - General Family Medicine 04/01/17 11/02/21 Pcp, Unknown PCP - General 11/03/21 10/03/23 Cameron Warner NP [facility] [address] PCP - General Nurse Practitioner 10/04/23 documented as of this encounter Additional Source Comments The information contained in this document represents components of the legal health record. It is not the complete legal health record.[facility]
--- OUTSIDE RECORDS SUMMARY | 2025-04-26 07:22 | XMS_ITS | Clinical Summary ---
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 Not on file Not [...] (07/05/2017 9:18 AM EST) HDL 36 mg/dL [facility] Comment: Interpretation: Risk Level Males Decreased >45 mg/dL Average 40-45 mg/dL Increased <40 mg/dL CHOLESTEROL 162 0 - 240 mg/dL [facility] TRIGLYCERIDES 71 30 - 160 mg/dL [facility] LDL 112 50 - 129 mg/dL [facility] Comment: LDL levels in terms of risk for coronary heart disease: <100 mg/dL: Optimal 100-129 mg/dL: Near or above optimal 130-159 mg/dL: Borderline high 160-189 mg/dL: High >190 mg/dL: Very High CARDIAC RISK RATIO 4.5 3.4 - 5.0 C [facility] Blood 07/05/2017 9:18 AM EST 07/05/2017 9:19 AM EST us Baljeet Solares DO LAB BLOOD BKR ORDERABLES Final R esult Performing Organization Address City/State/[facility] Co de Phone Number [address] [phone] from Last 3 Months or Most Recently Relevant to Health Maintenance Insurance OUT OF [facility] P[facility] OUT OF [facility] PPO BLUE CROSS OUT OF STATE PPO OUT OF STATE PPO CROSS OUT OF STATE PPO BLUE [place] OUT OF STATE PPO Care Teams Building Materials Sales Attendant Relationship Specialty Start Date End Date Cameron Warner NP [facility] [place] [address] PCP - General Nurse Practitioner 10/04/23 Additional Source Comments The information contained in this document represents components of the legal health record. It is not the complete legal health record.[facility]
--- OUTSIDE RECORDS SUMMARY | 2025-04-26 07:22 | XMS_ITS | Clinical Summary ---
Author Organization [facility] Address [address] [place] [address] Care Team Providers Care Brake Shoe Rebuilder Name Role Phone Cameron Warner Primary Care [...] Tdap) 11/18/2021 11/19/2011 Alcohol/Substance Use Screening 05/17/2024 Influenza Vaccine (#1) 2024 03/29/2018 COVID-19 Vaccine (1 - 2024-2 6 season) 2025 Pneumococcal Vaccine: Pediat gaurav (0-5 Years) and At-Risk Patients (6-50 Years) Aged Out No longer eligible b ased on patient's age to complete this topic Insurance BCBS OUT OF STATE PPO WORKERS COMPENSATION WC ESTELA DOCKERY Care Teams Brake Shoe Rebuilder Relationship Specialty Start Date End Date Cameron Warner [address] [place] [address] PCP - General 12/13/21
--- OUTSIDE RECORDS SUMMARY | 2025-04-26 07:22 | XMS_ITS | Continuity of Care Document ---
Author Organization [facility] Address [address] [place] [address] Care Team Providers Care Maintenance Journeyman Name Role Phone Cameron Warner NP Primary Care Provider Encounters Date Type Department Care Team Description 09/16/2020 3:30 PM EDT Office Visit [address] [phone] Lisandro Cartagena PA Screen for STD (sexually transmitted disease) (Primary Dx); Difficult or painful urination 09/16/2020 Travel 07/21/2019 Office Visit [facility] [address] [place] [phone] Landen Aguirre PA 07/21/2019 2:15 PM EST Office Visit [facility] [address] [place] [phone] Landen Aguirre PA Pre-employment health screening examination (Primary Dx) Allergies No known active allergies Medications No known medications Immunizations Immunization Administration Dates Next Due Influenza,injectable,quad,Prsrv Fr 03/29/2018 Social History Smoking Status as of 04/26/2025 Tobacco Use Types Packs/Day Years Used Date [...] on file Procedures * Due to [place] Submittable law, this organization might not be sharing [...] painful urination Results * Due to [place] Submittable law, this organization might not be sharing [...] 1:49 AM EDT Narrative Resulting Agency Comment [id number] [facility] Final Result [facility] [address] [place] [address] * CHLAMYDIA TRACHOMATIS/N. GONORRHOEAE (GC) RNA, TMA (URINE) (09/16/2020 3:45 PM EDT) Chlamydia trachomatis rRNA NOT DETECTED NOT DETECTED [facility] Neisseria Gonorrhoeae rRNA NOT DETECTED NOT DETECTED [facility] COMMENT SEE NOTE [facility] Comment: The analytical performance characteristics of this assay, when used to test SurePath(TM) specimens have been determined by [facility]. The modifications have not been cleared or approved by the FDA. This assay has been validated pursuant to the CLIA regulations and is used for clinical purposes. For additional information, please refer to https://education.Augure/faq/GSE909 (This link is being provided for information/ educational purposes only.) 09/16/2020 3:45 PM EDT 09/17/2020 1:49 AM EDT Narrative Resulting Agency Comment [id number] [facility] Final Result [facility] [address] [place] [address] * (ABNORMAL) URINE DIPSTICK - STATION (09/16/2020 [...] or painful urination Dysuria 09/16/2020 Care Teams Maintenance Journeyman Relationship Specialty Start Date End Date Cameron Warner NP [address] [address] PCP - General Nurse Practitioner 09/16/20
[2025-04-26 07:24] VITALS: BP 120/78; PULSE 78; O2SAT 98; BMI 32.1
--- NOTE | 2025-04-26 07:24 | AM.OFFWIN_ITS ---
Intake Vital Signs 04/26/25 07:24 Height 6 ft 1 in Weight 243 lb BMI 32.1 BP 120/78 Blood Pressure Location Lt brachial Position Sitting Pulse 78 Pulse Source Pulse Oximeter Pulse Oximetry (%) 98 Oxygen Delivery Method Room Air Intake Visit Reasons: EP-lt eye stye Intake Note: Patient presents c/o left eye stye that has been on & off for about a month - patient has tried warm compresses & it goes away but keeps returning. Patient Tobacco Use Status: Former Tobacco user Allergies No Known Allergies Allergy (Verified 04/26/25 07:26) HPI HPI Comments History of Present Illness Details History of Present Illness - The patient is a 39-year-old male pres enting for evaluation of a recurrent stye. - The initial episode occurred approxima tely one month ago and resolved with warm compresses. - The condition recurred last week, agai n resolving with compresses, but reappeared on the morning of the visit. - The patient describes the lesion as edgardo mpy but reports it does not break open. - This is the first time in 40 years he has experienced this issue. - He denies wearing contact lenses and d oes not have a regular eye doctor. - He has no eye trauma, discharge, itchi ness, blurry or double vision. Physical Exam General: Cooperative, healthy appearing, comfortable, no acute distress and well developed Orientation: Patient oriented x3 Limitations: No limitations Head: Normal to inspection Eyes: Appearance normal, both eyes and all related structures. Pupils are 2mm in size bilaterally. PERRLA. EOMI. Sclera is white, conjunctiva is pink. Small round hordeolum on the left lower mid eyelid. No discharge noted. Neck: Normal visual inspection and Yes full ROM Respiratory: Normal respiratory effort and able to speak in complete sentences. Clear to auscultation bilaterally. No w/r/r noted. Cardiovascular: Regular rate and rhythm. Normal S1 and S2. No m/r/g noted. Skin: No rashes or lesions noted Patient was informed and verbally consented to the use of an ambient scribe for clinic note documentation during this visit. [facility] Social History Housing: House Patient Tobacco Use Status: Former Tobacco user Tobacco use type: Smokeless Tobacco e-Cigarette/Vaping Use: Never Used Second Hand Smoke Exposure: No service: No Current occupational status: employed Current occupation: [employer] Current occupational exposures/hazards: Yes Cognitive needs: No Hearing needs: No Vision needs: No Review of Systems Const All systems reviewed & are unremarkable except as noted in HPI and below Physical Exam Vital Signs: Last Vital Signs Pulse 78 04/26/25 07:24 BP 120/78 04/26/25 07:24 Pulse Ox 98 04/26/25 07:24 Oxygen Delivery Method Room Air 04/26/25 07:24 BMI result Body Mass Index 32.1 Assessment & Plan Assessment & Plan (1) Hordeolum externum left lower eyelid: Code(s): H00.015 - Hordeolum externum left lower eyelid Plan Most likely Hordeolum Externum plan - Antibiotic eye drops were prescribed, as per the patient's preference over ointment. - The patient was instructed to instill one to two drops in the affected eye four times a day for five days. - The patient was advised to follow up with an telegraph editor if the condition recurs after treatment, and a referral was provided. Medications: New ciprofloxacin HCl 0.3% 1 - 2 drops into the right eye four times a day 5 mL 0RF 5 days Coding Level of Care Code Est Pt Level 3 (86701) Diagnoses Hordeolum externum left lower eyelid H00.015
== END 2025-04-26 08:39 | disposition home or self-care (01) ==
PROVIDERS: PCP Nurse Practitioner Family; Visit Provider Physician Assistant Medical
DX: H00.015 Hordeolum externum left lower eyelid (principal)